=== PATIENT | male | born 1985 | race American Indian/Alaskan Native ===

== ENCOUNTER 2017-10-10 11:26 | Emergency (ER) | payer SELFPAY ==
--- NOTE | 2017-10-10 12:20 | Emergency Department Report ---
ED Rash HPI - HPI Chief Complaint: Skin Rash Stated Complaint: RASH Time Seen by Provider: 10/10/17 11:50 Duration: 3 Days Location: Chest, Back Suspected Cause: Unknown Rash Symptoms: Yes Itching (occasional), Yes Blistering (painful rash), No Facial Swelling, No Tongue/Oral Swelling, No Breathing Difficulties, No Choking Sensation, No Wheezing/Dyspnea, No Peeling, No Malaise, No Myalgias Severity: moderate (6/10) Other History: This is a 32-year-old male presented to the ER with rash that he' s had for over 3 days. He said he has it on his right chest and right upper back. He states that sometimes this was more painful pain is burning and sharp. When asked, patient admits that he had some burning sensation prior to rash breaking out. Denies any nausea or vomiting. Denies being around anyone with similar rash. He said he had the chickenpox vaccine in the past. Patient has a history of HIV and herpes . No medication taken for rash. Patient does not have access to primary care. ED Review of Systems ROS: Stated complaint: RASH Other details as noted in HPI Constitutional: denies: chills, fever ENT: denies: ear pain, throat pain, congestion Respiratory: denies: cough, shortness of breath, SOB with exertion, SOB at rest , stridor, wheezing Cardiovascular: denies: chest pain, palpitations, edema, syncope Gastrointestinal: denies: nausea, vomiting Musculoskeletal: denies: back pain, joint swelling, arthralgia Skin: rash, lesions (painful), pruritus Neurological: denies: headache, weakness, paresthesias ED Past Medical Hx - Past Medical History Previous Medical History?: Yes Hx HIV: Yes Additional medical history: herpes - Surgical History Past Surgical History?: No - Family History Family history: hypertension - Social History Smoking Status: Never Smoker Substance Use Type: None - Medications Home Medications: Home Medications Medication Instructions Recorded Confirmed Last Taken Type Acetaminophen/Codeine [Tylenol 1 tab PO Q6H PRN #12 tab 10/10/17 Unknown Rx /Codeine # 3 tab] Acyclovir [Zovirax Tab] 800 mg PO Q8H 7 Days #21 tablet 10/10/17 Unknown Rx Ibuprofen [Motrin] 600 mg PO Q8H PRN #15 tablet 10/10/17 Unknown Rx hydrOXYzine HCL [Atarax] 25 mg PO Q6HR PRN #12 tablet 10/10/17 Unknown Rx Rash Exam - Exam General: Vital signs noted. No distress. Alert and acting appropriately. His is a 32-year-old male well-nourished well-developed in no acute distress and nontoxic in appearance. HEENT: No Periorbital Edema, No Conjuctival Injection, No Chemosis, No Perioral Edema, No Tongue Edema, No Uvular Edema, No Compromised Airway, No Drooling Lungs: Yes Good Air Exchange (CTAB, normal work of breathing), No Wheezes, No Ronchi, No Stridor, No Cough, No Labored Respirations, No Retractions, No Use of Accessory Muscles, No Other Abnormal Lung Sounds Skin: Yes Weeping, Yes Tenderness, Yes Erythema, Yes Edema, Yes Other (group vesicular rash, erythema to posterior right thorax and anterior right chest. No crossing over dermatome line. Tender to palpate), No Urticarial Rash, No Maculopapular Rash, No Morbilliform rash, No Bulla(e), No Excoriations Other: Positive: Abdomen Normal, Neurologic Normal, Musculoskeletal Normal ED Course Vital Signs 10/10/17 11:33 Temperature 98.1 F Pulse Rate 72 Respiratory 14 Rate Blood Pressure 171/104 O2 Sat by Pulse 98 Oximetry Vital Signs 10/10/17 10/10/17 11:33 12:37 Temperature 98.1 F Pulse Rate 72 Respiratory 14 Rate Blood Pressure 171/104 Blood Pressure 145/81 [Left] O2 Sat by Pulse 98 Oximetry - Reevaluation(s) Reevaluation #1: 10/10/17 12:38 Patient received [place] 5/325 2 tablets by mouth for painful shingles rash. ED Medical Decision Making - Medical Decision Making ED course: This is a 32-year-old male well-nourished well-developed in no acute distress here presented with rash for 3 days without any fever or chills or any respiratory symptoms. Patient has a history of herpes and HIV and he does not have a primary care physician. Patient reports rash is burning and sharp pain is located to the front of his chest and his right upper back. He is here to be evaluated Patient was seen by myself and examined and she is in stable condition. Blood pressure was elevated in triage and retaken and now 145/81. Denies any history of high blood pressure but reports that he is in pain. Pain is controlled with pain medication. Patient found to have vesicular, we pen, tender to palpate erythema area to right anterior chest wall and right posterior chest wall. Patient was shingles and I discussed with him his diagnosis, treatment plan and need to follow up with primary care physician at [facility] in 2- 3 days. A/P I: Shingles painful -[place] 5/325 mg 2 tablets. Given emergency room which relieved his pain and I will send him home on Motrin and Tylenol No. 3 and acyclovir Emergency room and plan to discharge home on steroids 2: Pruritus -Will send home on Atarax Patient educated on diagnosis, medication, need to follow-up, and skin care and they voiced understanding. I also discussed with him that he needs to follow up with infectious disease doctor regarding his HIV. I told him to call [facility] as scheduled appointment tomorrow to see a primary care physician and they can refer him to infectious disease. I also instructed him that he needs to read instructions on shingles as it is very contagious and he needs to practice good hand hygiene Vital signs are stable and afebrile. Discharge home in stable condition to follow up with primary care physician in 2 -3 days and also follow up with netsuite developer in 2-3 days. Patient is nontoxic in appearance and discharged home with his friend in stable condition with a prescription for Tylenol No. 3, Atarax, Motrin and acyclovir and he voiced understanding of discharge instruction. - Differential Diagnosis shingles, poison johnnie, contact dermatitis, Critical care attestation.: If time is entered above; I have spent that time in minutes in the direct care of this critically ill patient, excluding procedure time. ED Disposition Clinical Impression: Pruritus Shingles rash Qualifiers: Herpes zoster complications: without complications Qualified Code(s): B02.9 - Zoster without complications Disposition: -01 TO HOME OR SELFCARE Is pt being admited?: No Does the pt Need Aspirin: No Condition: Stable Instructions: Herpes Zoster (ED), Itchy Skin (ED) Additional Instructions: Please follow up with netsuite developer and primary care physician as instructed. Have primary care physician refer you to infectious disease for HIV. Please not drive or operate heavy machinery while taking and Tylenol No. 3 as a cause drowsiness and take this medication only for severe pain Take Motrin for mild to moderate pain Atarax for itching but this can cause drowsiness. Acyclovir for shingles Prescriptions: Acetaminophen/Codeine [Tylenol /Codeine # 3 tab] 1 tab PO Q6H PRN #12 tab PRN Reason: severe pain Acyclovir [Zovirax Tab] 800 mg PO Q8H 7 Days #21 tablet hydrOXYzine HCL [Atarax] 25 mg PO Q6HR PRN #12 tablet PRN Reason: Itching Ibuprofen [Motrin] 600 mg PO Q8H PRN #15 tablet PRN Reason: Pain Referrals: MELITON STACK MD [Staff Physician] - 2-3 Days [facility] [Outside] - 2-3 Days Forms: Accompanied Note, Work/School Release Form(ED)
[2017-10-10] MEDS ORDERED: NORCO 5/325 PO ONE (12:33)
[2017-10-10 12:38] VITALS: BP 145/81
== END 2017-10-10 12:57 | disposition home or self-care (01) ==
LOC: ED 11:26
DX: B02.9 Zoster without complications (principal); L29.9 Pruritus, unspecified
CPT/HCPCS: 99282